=== PATIENT | male | born 1980 | race Hispanic/Latino ===

== ENCOUNTER 2023-02-11 13:57 | Emergency (ER) | payer BC ==
[~2023-02-11 13:57] MED LIST: Iopamidol 370 76% 100 ML VIAL ONE
== END 2023-02-11 16:05 | disposition home or self-care (01) ==
LOC: CSHERS 13:57
DX: H53.8 Other visual disturbances (principal); E11.9 Type 2 diabetes mellitus without complications; I10 Essential (primary) hypertension
CPT/HCPCS: 70496; 70498; 82565; Q9967

== ENCOUNTER 2023-09-07 14:28 | Emergency (ER) | payer BC | END 2023-09-07 16:55 | disposition home or self-care (01) | LOC: CSHERS 14:28 | DX: M54.17 Radiculopathy, lumbosacral region (principal); E11.9 Type 2 diabetes mellitus without complications; I10 Essential (primary) hypertension ==

== ENCOUNTER 2025-01-18 11:57 | Emergency (ER) | payer BC | END 2025-01-18 12:50 | disposition home or self-care (01) | LOC: CSHERS 11:57 | DX: S01.21XA Laceration without foreign body of nose, initial encounter (principal); E11.9 Type 2 diabetes mellitus without complications; I10 Essential (primary) hypertension; Z79.4 Long term (current) use of insulin; X58.XXXA Exposure to other specified factors, initial encounter | CPT/HCPCS: 12011; 99282 ==

== ENCOUNTER 2025-01-22 13:43 | Emergency (ER) | payer BC | END 2025-01-22 14:23 | disposition home or self-care (01) | LOC: CSHERS 13:43 | DX: S01.21XD Laceration without foreign body of nose, subsequent encounter (principal); Z48.02 Encounter for removal of sutures; I10 Essential (primary) hypertension; E11.9 Type 2 diabetes mellitus without complications; Z79.85 Long-term (current) use of injectable non-insulin antidiabetic drugs; W22.8XXD Striking against or struck by other objects, subsequent encounter ==